=== PATIENT | male | born 1995 | race Caucasian/White ===

== ENCOUNTER 2021-11-20 12:36 | Emergency (ER) | payer OTHER ==
[~2021-11-20] VITALS: Ht 177.8 cm; Wt 76.2 kg
[2021-11-20 12:46] VITALS: BP 156/90
--- NOTE | 2021-11-20 13:21 | NUR ---
26/M BIB SELF WITH C/O INTERMITTENT EPISODES OF SOB SINCE LAST YEAR. STATES YESTERDAY HE FELT THE SYMPTOMS WORSEN, STATES FEELING "EXTREMELY ANXIOUS." DENIES CP, DIZZINESS, DENIES RECENT DRUG/ALCOHOL USE.
[2021-11-20] MEDS ORDERED: IBUP-2213 PO (14:12)
--- NOTE | 2021-11-20 14:43 | NUR ---
Patient discharged with v/s stable. Written and verbal after care instructions ABOUT NONSPECIFIC CHEST PAIN given and explained. Patient alert, oriented and verbalized understanding of instructions. Ambulatory with steady gait. All questions addressed prior to discharge. ID band removed. Patient advised to follow up with PMD. Rx of IBUPROFEN given. Patient educated on indication of medication including possible reaction and side effects. Opportunity to ask questions provided and answered.
== END 2021-11-20 14:43 | disposition home or self-care (01) ==
LOC: MED 12:36
DX: R07.9 Chest pain, unspecified (principal); F41.9 Anxiety disorder, unspecified; Z79.899 Other long term (current) drug therapy
CPT/HCPCS: 71045; 93005; 99283

== ENCOUNTER 2022-05-13 17:18 | Emergency (ER) | payer MEDICAID, OTHER ==
[~2022-05-13] VITALS: Ht 177.8 cm; Wt 74.8 kg
[~2022-05-13 17:18] MED LIST: IBUP-2213 PO
[2022-05-13 17:29] VITALS: BP 164/108
--- NOTE | 2022-05-13 17:32 | NUR ---
27 y/o male biba from home, c/o chest palpitations with body numbness/tingling in relation to anxiety. pt states he intially had chest pain, but is no longer having any pain at this time. 0/10 pain. a&ox4, ambulates with steady gait. pt skin pink/warm/dry. denies any recent drug or alcohol use. pmh: asthma nka med: at home vitamins
[2022-05-13] MEDS ORDERED: LORazepam 1 MG TAB PO ONE (18:20)
[2022-05-13 18:56] LABS: BASOPHILS % (AUTO) 0.3 % (0.0-2.0); EOSINOPHILS # (AUTO) 0.1 K/uL (0-0.4); EOSINOPHILS % (AUTO) 0.7 % (0.0-4.0); HEMATOCRIT 47.2 % (36-52); HEMOGLOBIN 16.4 g/dL (12.0-18.0); LYMPHOCYTES # (AUTO) 1.2 K/uL (2.0-11.5); LYMPHOCYTES % (AUTO) 16.1 % (20.5-51.1); MEAN CORPUSCULAR HEMOGLOBIN 30 pg (27-31); MEAN CORPUSCULAR HGB CONC 35 g/dL (33-37); MEAN CORPUSCULAR VOLUME 85.7 fL (80-94); MONOCYTES # (AUTO) 0.5 K/uL (0.8-1.0); MONOCYTES % (AUTO) 5.9 % (1.7-9.3); NEUTROPHILS # (AUTO) 5.9 K/uL (1.8-7.7); PLATELET COUNT (AUTO) 253 K/uL (140-450); RED BLOOD CELL COUNT(AUTO) 5.51 MIL/uL (4.20-6.10); RED CELL DISTRIBUTION WIDTH 13.7 % (11.6-13.7); WHITE BLOOD COUNT (AUTO) 7.7 K/uL (4.8-10.8)
[2022-05-13 19:23] LABS: ALBUMIN 4.5 g/dL (3.4-5.0); ANION GAP 17.6 (8-16); ASPARTATE AMINOTRANSFERASE 17 U/L (15-37); CARBON DIOXIDE 23.3 mmol/L (21-32); CHLORIDE 100 mmol/L (98-107); CREATININE 0.9 mg/dL (0.6-1.3); GFR ARICAN-AMERICAN 129 mL/min (>90); GLUCOSE 87 mg/dL (74-106); POTASSIUM 3.9 mmol/L (3.5-5.1); SODIUM SERUM 137 mmol/L (136-145); TOTAL BILIRUBIN 0.5 mg/dL (0.0-1.0); UREA NITROGEN, BLOOD 11 mg/dL (7-18)
[2022-05-13] MEDS ORDERED: HYDR25CA1 PO (19:31)
[2022-05-13] MEDS ORDERED: IBUP-2213 PO (19:31)
--- NOTE | 2022-05-13 19:35 | NUR ---
PA IN TRIAGE UPDATING PT
[2022-05-13 19:44] VITALS: BP 137/74
--- NOTE | 2022-05-13 19:44 | NUR ---
Patient discharged with v/s stable. Written and verbal after care instructions given and explained. Patient alert, oriented and verbalized understanding of instructions. Ambulatory with steady gait. All questions addressed prior to discharge. ID band removed. Patient advised to follow up with PMD. Rx of MOTRIN/ VISTARIL given. Patient educated on indication of medication including possible reaction and side effects. Opportunity to ask questions provided and answered.
== END 2022-05-13 19:44 | disposition home or self-care (01) ==
LOC: MED 17:18
DX: R07.89 Other chest pain (principal); F41.0 Panic disorder [episodic paroxysmal anxiety]; R03.0 Elevated blood-pressure reading, without diagnosis of hypertension; J45.909 Unspecified asthma, uncomplicated; Z79.899 Other long term (current) drug therapy
CPT/HCPCS: 36415; 71045; 80053; 84484; 85025; 93005; 99285

== ENCOUNTER 2022-06-27 09:28 | Day surgery (SDC) | payer MEDICAID ==
[~2022-06-27] VITALS: Ht 177.8 cm; Wt 67.6 kg
[~2022-06-27 09:28] MED LIST changes: +HYDR25CA1 PO
[2022-06-27] MEDS ORDERED: diphenhydrAMINE 50 MG/ML VIAL ONE (11:38)
[2022-06-27] MEDS ORDERED: MIDAZOLAM 5 MG/5 ML VIAL ONE (11:38)
[2022-06-27] MEDS ORDERED: fentaNYL citrate 0.05 MG/ML VIAL ONE (11:38)
[2022-06-27] MEDS: MIDAZOLAM 5 MG/5 ML VIAL IV ONE (11:50)
[2022-06-27] MEDS: fentaNYL citrate 0.05 MG/ML VIAL IVP ONE (11:51)
[2022-06-27] MEDS: diphenhydrAMINE 50 MG/ML VIAL IVP ONE (11:52)
== END 2022-06-27 13:20 | disposition home or self-care (01) ==
LOC: MMU 09:28 → MDS 09:28
PROVIDERS: ATTEND Internal Medicine Gastroenterology
DX: R10.13 Epigastric pain (principal); K59.00 Constipation, unspecified; J45.909 Unspecified asthma, uncomplicated; F41.9 Anxiety disorder, unspecified; F32.A Depression, unspecified; Z79.899 Other long term (current) drug therapy; Z20.822 Contact with and (suspected) exposure to COVID-19
CPT/HCPCS: 43235; 87426; J1200; J2250; J3010

== ENCOUNTER 2022-08-01 06:34 | Day surgery (SDC) | payer OTHER ==
[~2022-08-01] VITALS: Ht 177.8 cm; Wt 26.8 kg
[2022-08-01] MEDS ORDERED: MIDAZOLAM 2 MG/2 ML VIAL ONE (07:44)
[2022-08-01] MEDS ORDERED: diphenhydrAMINE 50 MG/ML VIAL ONE (07:44)
[2022-08-01] MEDS ORDERED: fentaNYL citrate 0.05 MG/ML VIAL ONE (07:45)
[2022-08-01 08:33] LABS: BASOPHILS % (AUTO) 0.4 % (0.0-2.0); EOSINOPHILS # (AUTO) 0.2 K/uL (0-0.4); HEMATOCRIT 39.9 % (36-52); HEMOGLOBIN 13.8 g/dL (12.0-18.0); LYMPHOCYTES # (AUTO) 1.9 K/uL (2.0-11.5); LYMPHOCYTES % (AUTO) 34.3 % (20.5-51.1); MEAN CORPUSCULAR HEMOGLOBIN 31 pg (27-31); MEAN CORPUSCULAR HGB CONC 35 g/dL (33-37); MONOCYTES # (AUTO) 0.6 K/uL (0.8-1.0); MONOCYTES % (AUTO) 10.8 % (1.7-9.3); NEUTROPHILS # (AUTO) 2.8 K/uL (1.8-7.7); NEUTROPHILS % (AUTO) 51.5 % (42.2-75.2); PLATELET COUNT (AUTO) 189 K/uL (140-450); RED BLOOD CELL COUNT(AUTO) 4.49 MIL/uL (4.20-6.10); RED CELL DISTRIBUTION WIDTH 13.5 % (11.6-13.7); WHITE BLOOD COUNT (AUTO) 5.4 K/uL (4.8-10.8)
[2022-08-01 08:47] LABS: ALBUMIN 3.6 g/dL (3.4-5.0); ANION GAP 13.5 (8-16); CARBON DIOXIDE 27.3 mmol/L (21-32); CREATININE 0.8 mg/dL (0.6-1.3); POTASSIUM 3.8 mmol/L (3.5-5.1); TOTAL BILIRUBIN 0.2 mg/dL (0.0-1.0)
[2022-08-01] MEDS ORDERED: PROPOFOL 200 MG/20 ML VIAL IV ONE ×3 (09:00→09:56)
[2022-08-01] MEDS ORDERED: LABETALOL 20 MG/4 ML VIAL IVP PRN (10:09)
[2022-08-01] MEDS ORDERED: hydrALAZINE 20 MG/ML VIAL IVP PRN (10:11)
[2022-08-01] MEDS ORDERED: LACTATED RINGERS 1,000 ML IV SCH (10:15)
[2022-08-01] MEDS ORDERED: ONDANSETRON 4 MG/2 ML VIAL IVP PRN (10:15)
== END 2022-08-01 11:15 | disposition home or self-care (01) ==
LOC: MDS 06:34 → MMU 06:35 → MDS 11:15
PROVIDERS: ATTEND Internal Medicine Gastroenterology
DX: R10.13 Epigastric pain (principal); K21.00 Gastro-esophageal reflux disease with esophagitis, without bleeding; K59.00 Constipation, unspecified; J45.909 Unspecified asthma, uncomplicated; Z20.822 Contact with and (suspected) exposure to COVID-19
CPT/HCPCS: 36415; 43239; 80053; 85025; 85610; 87426; 88305; 88312; 88313; 88342; J2704; J7030; J1200; J2250; J3010